=== PATIENT | male | born 1950 | race African-American/Black ===

== ENCOUNTER 2019-12-14 02:31 | Inpatient (IN) | payer BC, MEDICAID ==
[~2019-12-14] VITALS: Ht 182.9 cm; Wt 84.4 kg
[~2019-12-14 02:31] MED LIST: ALL; GLIPIZIDE PO; KEPP500 PO; LISI-604 PO
[2019-12-14 03:06] LABS: BASOPHILS % 1.3 % (0.0-2.0); EOSINOPHILS % 4.5 % (0.0-5.0); HEMATOCRIT. 26.6 % (42.0-52.0); HEMOGLOBIN. 8.8 g/dL (14.0-18.0); LYMPHOCYTES % 40.7 % (20.0-50.0); MEAN CORPUSCULAR HEMOGLOBIN 26.9 pg (28.0-32.0); MEAN CORPUSCULAR VOLUME 80.9 fL (80.0-94.0); MEAN PLATELET VOLUME 8.5 fl (7.4-10.4); MONOCYTES % 10.2 % (2.0-8.0); NEUTROPHILS % 43.3 % (40.0-76.0); PLATELET 159 x1000/uL (130-400); RED BLOOD CELL COUNT 3.28 mill/uL (4.7-6.1); RED CELL DISTRIBUTION WIDTH 15.8 % (11.6-14.6)
[2019-12-14 03:11] LABS: CHLORIDE 112 mEq/L (98-107)
[2019-12-14 03:12] LABS: INR 0.9; PROTHROMBIN TIME 10.1 sec (9.6-11.0)
[2019-12-14 03:15] LABS: ETHANOL BLOOD < 10 mg/dL
[2019-12-14 03:19] LABS: LDL CHOLESTEROL 49 mg/dL (5-100)
[2019-12-14] MEDS ORDERED: IOHEXOL-350 100 ML BOTTLE ONE (03:30)
[2019-12-14] MEDS ORDERED: ASPIRIN 325MG EC TABLET PO ONE (05:30)
[2019-12-14 09:28] LABS: CLARITY URINE CLEAR (CLEAR); KETONES URINE NEGATIVE (NEGATIVE); LEUKOCYTE ESTERASE URINE NEGATIVE (NEGATIVE); NITRITE URINE NEGATIVE (NEGATIVE); OCCULT BLOOD URINE NEGATIVE (NEGATIVE); PH URINE 6.5 (4.5-8.0); PROTEIN URINE NEGATIVE (NEGATIVE); SPECIFIC GRAVITY URINE 1.018 (1.005-1.030); UROBILINOGEN URINE 0.2 E.U./dL (0.2-1.0)
[2019-12-14 09:29] LABS: COLOR URINE PALE YELLOW (YELLOW)
[2019-12-14 09:45] LABS: *AMPHETAMINES SCREEN URINE NEGATIVE (NEGATIVE); *BARBITURATES SCREEN URINE NEGATIVE (NEGATIVE); *BENZODIAZEPINES SCREEN URINE NEGATIVE (NEGATIVE); *COCAINE SCREEN URINE NEGATIVE (NEGATIVE); METHADONE URINE SCREEN NEGATIVE (NEGATIVE)
[2019-12-14 09:46] LABS: CANNABINOID URINE SCREEN NEGATIVE (NEGATIVE); OPIATES URINE SCREEN NEGATIVE (NEGATIVE); PHENCYCLIDINE URINE SCREEN NEGATIVE (NEGATIVE)
[2019-12-14] MEDS ORDERED: ACETAMINOPHEN 325MG TABLET PO PRN ×2 (20:00)
[2019-12-14] MEDS ORDERED: CLONIDINE 0.1MG TABLET PO PRN (20:00)
[2019-12-14] MEDS ORDERED: DEXTROSE 50% WATER 50ML SYRINGE IV PRN (20:00)
[2019-12-14] MEDS ORDERED: DIPHENHYDRAMINE 50MG/ML VIAL IV PRN (20:00)
[2019-12-14] MEDS ORDERED: ONDANSETRON HCL 4MG/2ML INJ IV PRN (20:00)
[2019-12-14] MEDS ORDERED: MAGNESIUM/ALUMINUM HYDROXIDE/SIMETHICONE 30ML UDC PO PRN (20:00)
[2019-12-14] MEDS ORDERED: MAGNESIUM HYDROXIDE 400MG/5ML 30ML UDC PO PRN (20:00)
[2019-12-15] VITALS: BP 98/78
[2019-12-15] MEDS ORDERED: ATORVASTATIN CALCIUM 20MG TABLET PO SCH
[2019-12-15] MEDS ORDERED: DONE10TA43 PO (00:37)
[2019-12-15] MEDS ORDERED: FURO40TA5 PO (00:37)
[2019-12-15] MEDS ORDERED: ATOR-2 PO (00:37)
[2019-12-15] MEDS ORDERED: AMLO10TA80 PO (00:37)
[2019-12-15] MEDS ORDERED: CLOP75TA33 PO (00:37)
[2019-12-15] MEDS ORDERED: MINO10TA16 PO (00:37)
[2019-12-15] MEDS ORDERED: INSNOV SQ (00:37)
[2019-12-15] MEDS ORDERED: POTA20TA82 PO (00:37)
[2019-12-15] MEDS ORDERED: PREG100C54 PO (00:37)
[2019-12-15] MEDS ORDERED: INSU100C6 SQ (00:38)
[2019-12-15] MEDS: ZOLPIDEM TARTRATE 5MG TABLET PO PRN ×2 (00:59→23:28)
[2019-12-15] MEDS: BLOOD SUGAR DIAGNOSTIC STRIP TEST SCH ×5 (01:06→21:08)
[2019-12-15 04:00] VITALS: BP 110/62
[2019-12-15] MEDS: SODIUM CHLORIDE 0.9% INJ 3ML FLUSH IVF SCH ×3 (05:43→21:08)
[2019-12-15 08:00] VITALS: BP 109/61
[2019-12-15] MEDS: INSULIN LISPRO 100 UNITS/ML SUBCUT SCH ×5 (08:05→21:46)
[2019-12-15] MEDS: DOCUSATE SODIUM 100MG CAPSULE PO SCH ×2 (08:29→17:44)
[2019-12-15] MEDS: ASPIRIN 81MG EC TABLET PO SCH (08:29)
[2019-12-15] MEDS ORDERED: ENOXAPARIN 30MG/0.3ML SYR SUBCUT SCH (09:00)
[2019-12-15] MEDS ORDERED: ENOXAPARIN 40MG/0.4ML SYR SUBCUT SCH (09:00)
[2019-12-15] MEDS ORDERED: LEVOFLOXACIN 500MG PREMIX 100 ML IV SCH ×2 (11:15→13:00)
[2019-12-15 12:00] VITALS: BP 124/58
[2019-12-15 12:34] LABS: T4 FREE 0.82 ng/dL (0.76-1.46)
[2019-12-15] MEDS ORDERED: PREGABALIN 100 MG PO SCH (17:00)
[2019-12-15] MEDS: DONEPEZIL HCL 10MG TABLET PO SCH (17:44)
[2019-12-15] MEDS: CLOPIDOGREL 75MG TABLET PO SCH (17:44)
[2019-12-15] MEDS: PREGABALIN 50 MG CAPSULE PO SCH ×3 (17:45→21:44)
[2019-12-15 18:25] LABS: BASOPHILS % 1.1 % (0.0-2.0); EOSINOPHILS % 2.8 % (0.0-5.0); HEMOGLOBIN. 8.9 g/dL (14.0-18.0); LYMPHOCYTES % 39.1 % (20.0-50.0); MEAN CORPUSCULAR HEMOGLOBIN 27.3 pg (28.0-32.0); MEAN PLATELET VOLUME 8.9 fl (7.4-10.4); MONOCYTES % 13.1 % (2.0-8.0); NEUTROPHILS % 43.9 % (40.0-76.0); PLATELET 166 x1000/uL (130-400); RED BLOOD CELL COUNT 3.25 mill/uL (4.7-6.1)
[2019-12-15 18:27] LABS: CHLORIDE 110 mEq/L (98-107)
[2019-12-15 20:00] VITALS: BP 119/62
[2019-12-15] MEDS: FAMOTIDINE 20MG TABLET PO SCH (20:39)
[2019-12-15] MEDS: ATORVASTATIN CALCIUM 40MG TABLET PO SCH (20:41)
[2019-12-15] MEDS ORDERED: MEDICATION NOT ON FORMULARY EA (Atorvastatin Calcium 80 MG) PO SCH (21:00)
[2019-12-16] VITALS: BP 117/49
[2019-12-16 04:00] VITALS: BP 126/59
[2019-12-16] MEDS: BLOOD SUGAR DIAGNOSTIC STRIP TEST SCH ×4 (06:39→21:00)
[2019-12-16] MEDS: INSULIN LISPRO 100 UNITS/ML SUBCUT SCH ×4 (06:39→22:42)
[2019-12-16] MEDS: SODIUM CHLORIDE 0.9% INJ 3ML FLUSH IVF SCH ×3 (06:39→22:19)
[2019-12-16 08:00] VITALS: BP 115/64
[2019-12-16] MEDS: PREGABALIN 50 MG CAPSULE PO SCH ×4 (09:00→21:30)
[2019-12-16] MEDS: ENOXAPARIN 40MG/0.4ML SYR SUBCUT SCH (10:13)
[2019-12-16] MEDS: LEVOFLOXACIN 250MG PREMIX 50 ML IV SCH (10:14)
[2019-12-16] MEDS: FUROSEMIDE 40MG TABLET PO SCH (10:15)
[2019-12-16] MEDS: DOCUSATE SODIUM 100MG CAPSULE PO SCH ×2 (10:15→18:08)
[2019-12-16] MEDS: ASPIRIN 81MG EC TABLET PO SCH (10:15)
[2019-12-16] MEDS: CLOPIDOGREL 75MG TABLET PO SCH (10:15)
[2019-12-16] MEDS: DONEPEZIL HCL 10MG TABLET PO SCH (10:16)
[2019-12-16 12:00] VITALS: BP 107/61
[2019-12-16 16:00] VITALS: BP 119/64
[2019-12-16 20:00] VITALS: BP 113/63
[2019-12-16] MEDS: ATORVASTATIN CALCIUM 40MG TABLET PO SCH (21:30)
[2019-12-16] MEDS: FAMOTIDINE 20MG TABLET PO SCH (21:30)
[2019-12-17] VITALS: BP 116/67
[2019-12-17 04:00] VITALS: BP 132/77
[2019-12-17] MEDS: SODIUM CHLORIDE 0.9% INJ 3ML FLUSH IVF SCH ×2 (06:13→14:52)
[2019-12-17] MEDS: BLOOD SUGAR DIAGNOSTIC STRIP TEST SCH ×2 (06:13→11:45)
[2019-12-17] MEDS: INSULIN LISPRO 100 UNITS/ML SUBCUT SCH ×2 (07:01→14:52)
[2019-12-17 08:00] VITALS: BP 118/63
[2019-12-17] MEDS: PREGABALIN 50 MG CAPSULE PO SCH ×2 (10:24)
[2019-12-17] MEDS: ENOXAPARIN 40MG/0.4ML SYR SUBCUT SCH (10:24)
[2019-12-17] MEDS: DONEPEZIL HCL 10MG TABLET PO SCH (10:24)
[2019-12-17] MEDS: ASPIRIN 81MG EC TABLET PO SCH (10:25)
[2019-12-17] MEDS: CLOPIDOGREL 75MG TABLET PO SCH (10:25)
[2019-12-17] MEDS: FUROSEMIDE 40MG TABLET PO SCH (10:25)
[2019-12-17] MEDS: DOCUSATE SODIUM 100MG CAPSULE PO SCH (10:26)
[2019-12-17] MEDS: LEVOFLOXACIN 250MG PREMIX 50 ML IV SCH (10:27)
[2019-12-17 12:00] VITALS: BP 133/69
[2019-12-17 16:00] VITALS: BP 125/57
[2019-12-17 16:04] VITALS: BP 128/65
[2019-12-17] MEDS ORDERED: BACLOFEN 10MG TABLET PO SCH (21:00)
[2019-12-18] MEDS ORDERED: LEVOFLOXACIN 250MG TABLET PO SCH (11:00)
== END 2019-12-17 17:55 | DRG 70 ==
LOC: ER 02:31 → 7WST 05:56 → EDBEDREQ 06:15 → EDBEDREQSVC 06:15 → EDBEDREQTM 06:15 → CANRESERV 21:09 → ENRESERV 21:09 → 5WST 12-15 22:45
PROVIDERS: ADMIT Internal Medicine; ATTEND Internal Medicine
DX: G93.89 Other specified disorders of brain (principal); I50.33 Acute on chronic diastolic (congestive) heart failure; N17.0 Acute kidney failure with tubular necrosis; I13.0 Hypertensive heart and chronic kidney disease with heart failure and stage 1 through stage 4 chronic kidney disease, or unspecified chronic kidney disease; I69.354 Hemiplegia and hemiparesis following cerebral infarction affecting left non-dominant side; D64.9 Anemia, unspecified; Z20.828 Contact with and (suspected) exposure to other viral communicable diseases; E11.22 Type 2 diabetes mellitus with diabetic chronic kidney disease; N18.9 Chronic kidney disease, unspecified; I27.20 Pulmonary hypertension, unspecified; Z79.02 Long term (current) use of antithrombotics/antiplatelets; Z79.4 Long term (current) use of insulin; Z79.899 Other long term (current) drug therapy; Z83.3 Family history of diabetes mellitus
CPT/HCPCS: 36415; 70496; 70498; 70551; 71045; 80053; 80061; 80305; 80320; 81003; 82962; 83036; 83721; 84145; 84439; 84443; 84484; 85025; 87635; 93005; 93306; 93970; 97162; 97166; 97530; 99285; J1650; J1815; J1956; Q9967; G0480; U0003-CS